=== PATIENT | female | born 1955 ===

== ENCOUNTER 2024-07-15 08:45 | Inpatient (IN) | payer OTHER ==
[~2024-07-15] VITALS: Ht 162.6 cm; Wt 59.0 kg
[2024-07-15 10:13] VITALS: BP 127/80; BP 137/63
[2024-07-22] MEDS ORDERED: MEPERIDINE HCL/PF 50 MG/ML VIAL IV SCH (13:51)
[2024-07-22] MEDS ORDERED: PROMETHAZINE HCL 25 MG/ML AMPUL IV SCH (13:51)
[2024-07-22 16:35] VITALS: BP 137/63
[2024-07-22 16:38] LABS: HEMATOCRIT 31.4 % (36.0-45.00); HEMOGLOBIN 10.1 g/dL (12.0-15.00); MEAN CELL VOLUME 78.9 fL (80.00-100.00); MEAN CORPUSCULAR HEMOGLOBIN 25.4 pg (27.00-32.0); MEAN CORPUSCULAR HGB CONC 32.2 g/dl (32.0-36.0); PLATELET COUNT 200 K/uL (150-450); RED BLOOD COUNT 3.98 M/uL (4.00-6.00); RED CELL DISTRIBUTION WIDTH 17.9 % (11.5-14.5)
[2024-07-22] MEDS ORDERED: POLYETHYLENE GLYCOL 3350 17 GM BLIST.PACK PO SCH (17:00)
[2024-07-22 20:00] VITALS: BP 134/74
[2024-07-23] VITALS: BP 99/63
[2024-07-23] MEDS ORDERED: IBUprofen 800 MG TABLET PO SCH (02:00)
[2024-07-23] MEDS ORDERED: SIMETHICONE 125 MG CAPSULE PO SCH (05:00)
[2024-07-23] MEDS ORDERED: GABAPENTIN 300 MG CAPSULE PO SCH (05:00)
[2024-07-23 06:54] LABS: HEMATOCRIT 30.4 % (36.0-45.00); HEMOGLOBIN 10.1 g/dL (12.0-15.00); MEAN CELL VOLUME 77.2 fL (80.00-100.00); MEAN CORPUSCULAR HEMOGLOBIN 25.7 pg (27.00-32.0); MEAN CORPUSCULAR HGB CONC 33.3 g/dl (32.0-36.0); PLATELET COUNT 195 K/uL (150-450); RED BLOOD COUNT 3.93 M/uL (4.00-6.00); RED CELL DISTRIBUTION WIDTH 17.9 % (11.5-14.5)
[2024-07-23 09:06] VITALS: BP 122/70
[2024-07-23 13:42] VITALS: BP 122/70
[2024-07-23 16:00] VITALS: BP 105/64
[2024-07-23 21:57] VITALS: BP 102/59
[2024-07-24 01:00] VITALS: BP 111/69
[2024-07-24] MEDS ORDERED: SIMETHICONE125 M1 PO (07:02)
[2024-07-24] MEDS ORDERED: IBUPROFEN800 MG PO (07:02)
[2024-07-24] MEDS ORDERED: POLY119PG PO (07:02)
[2024-07-24] MEDS ORDERED: GABAPENTIN300 MG PO (07:02)
[2024-07-24 08:17] VITALS: BP 105/65
== END 2024-07-24 08:30 | disposition home or self-care (01) | DRG 743 ==
LOC: EDUNIT# 08:45 → O/R 07-22 05:22 → SURH 07-22 07:00 → OB/GYN 07-22 15:57
PROVIDERS: ADMIT Obstetrics & Gynecology; ATTEND Obstetrics & Gynecology
PROC: 0JQC0ZZ Repair Pelvic Region Subcutaneous Tissue and Fascia, Open Approach (ICD-10-PCS; 2024-07-22)
PROC: 0UT90ZZ Resection of Uterus, Open Approach (ICD-10-PCS; principal; 2024-07-22 07:00)
DX: D25.1 Intramural leiomyoma of uterus (principal); N80.03 Adenomyosis of the uterus; N72 Inflammatory disease of cervix uteri; Z20.822 Contact with and (suspected) exposure to COVID-19; N81.3 Complete uterovaginal prolapse

== ENCOUNTER → 2024-07-15 08:47 | Outpatient (CLI) | payer OTHER ==
[2024-07-15 09:34] LABS: HEMATOCRIT 34.4 % (36.0-45.00); HEMOGLOBIN 11.3 g/dL (12.0-15.00); MEAN CELL VOLUME 77.3 fL (80.00-100.00); MEAN CORPUSCULAR HEMOGLOBIN 25.3 pg (27.00-32.0); MEAN CORPUSCULAR HGB CONC 32.8 g/dl (32.0-36.0); PLATELET COUNT 247 K/uL (150-450); RED BLOOD COUNT 4.46 M/uL (4.00-6.00)
[2024-07-15 09:43] LABS: PH,URINE 6.5 (5.0-8.0); URINE APPEARANCE Clear; URINE BILIRRUBIN Negative (NEGATIVE); URINE BLOOD Trace; URINE COLOR Yellow; URINE GLUCOSE Negative (NEGATIVE); URINE KETONE Negative (NEGATIVE); URINE LEUKOCYTE Negative; URINE NITRATE Negative; URINE PROTEIN Negative (NEGATIVE)
[2024-07-15 09:45] LABS: URINE BACTERIA 69.2 uL (0.0-1933); URINE EPITHELIAL CELLS 8.3 uL (0.0-38.8)
[2024-07-15 09:53] LABS: URINE WBC 0.6 uL (0.0-23.2)
[2024-07-15 10:18] LABS: INR 1.05; PARTIAL THROMBOPLASTIN TIME 25.5 SECONDS (22.0-34.0); PROTHROMBIN TIME 10.9 SECONDS (9.0-11.5)
[2024-07-15 10:44] LABS: ALBUMIN 3.9 gm/dL (3.4-5.0); BILIRUBIN TOTAL 0.48 mg/dL (0.3-1.2); CALCIUM 9.1 mg/dL (8.5-10.1); CREATININE SERUM 0.53 mg/dL (0.55-1.02); GFR 115.41; GLOBULINA 3.6 G/DL (2.4-3.5); POTASSIUM 4.14 mEq/L (3.5-5.1); TOTAL PROTEIN 7.5 gm/dL (6.4-8.2)
== END | disposition home or self-care (01) ==
LOC: LAB 08:47
PROVIDERS: ATTEND Obstetrics & Gynecology
DX: E03.9 Hypothyroidism, unspecified (principal); I10 Essential (primary) hypertension; E78.00 Pure hypercholesterolemia, unspecified; Z01.818 Encounter for other preprocedural examination; Z20.828 Contact with and (suspected) exposure to other viral communicable diseases